=== PATIENT | male | born 2000 | race Caucasian/White ===

== ENCOUNTER 2019-12-06 16:38 | Emergency (ER) | payer OTHER ==
[~2019-12-06] VITALS: Ht 170.2 cm; Wt 59.9 kg
[2019-12-06 17:03] VITALS: BP 127/54; Ht 170.2 cm; Wt 59.9 kg
== END 2019-12-06 18:04 | disposition home or self-care (01) ==
LOC: ED 16:38
DX: M25.531 Pain in right wrist (principal)